=== PATIENT | female | born 1985 | race African-American/Black ===

== ENCOUNTER 2024-01-19 19:13 | Emergency (ER) | payer OTHER ==
[~2024-01-19] VITALS: Ht 167.6 cm; Wt 91.0 kg
[2024-01-19 19:21] VITALS: O2SAT 100
[2024-01-19] MEDS ORDERED: CLONIDINE 0.2MG TABLET PO ONE (19:30)
[2024-01-19] MEDS: CLONIDINE 0.1MG TABLET PO NR (20:30)
[2024-01-19 20:56] LABS: BASOPHILS % 0.5 % (0.0-2.0); EOSINOPHILS % 0.5 % (0.0-5.0); HEMATOCRIT. 42.9 % (36.0-48.0); HEMOGLOBIN. 14.8 g/dL (12.0-16.0); LYMPHOCYTES % 24.2 % (20.0-50.0); MEAN CORPUSCULAR HEMOGLOBIN 28.5 pg (28.0-32.0); MEAN CORPUSCULAR HGB CONC 34.5 g/dL (31.0-37.0); MEAN CORPUSCULAR VOLUME 82.7 fL (81.0-99.0); MEAN PLATELET VOLUME 9.1 fl (7.4-10.4); MONOCYTES % 5.7 % (2.0-8.0); NEUTROPHILS % 69.1 % (40.0-76.0); PLATELET 256 x1000/uL (130-400); RED BLOOD CELL COUNT 5.19 mill/uL (4.2-5.4); RED CELL DISTRIBUTION WIDTH 15.4 % (11.6-14.6); WHITE BLOOD COUNT 10.1 x1000/uL (4.5-11.0)
[2024-01-19 21:05] LABS: CHLORIDE 103 mEq/L (98-107); POTASSIUM 3.2 mEq/L (3.5-5.1); SODIUM 136 mEq/L (136-145)
[2024-01-19 21:06] LABS: CALCIUM 9.4 mg/dL (8.7-10.4); CARBON DIOXIDE 25 mEq/L (21-32)
[2024-01-19 21:11] LABS: CREATININE 1.2 mg/dL (0.6-1.0); GLUCOSE 97 mg/dL (70-105); UREA NITROGEN BLOOD 12 mg/dL (9-23)
[2024-01-19 21:13] LABS: ALANINE AMINOTRANSFERASE 17 IU/L (10-49); ALBUMIN 4.7 g/dL (3.2-4.8); ASPARTATE AMINOTRANSFERASE 37 IU/L (<34); BILIRUBIN TOTAL 1.5 mg/dL (0.1-1.0)
[2024-01-19 21:14] LABS: PROTEIN TOTAL 7.8 g/dL (6.0-8.3)
[2024-01-19] MEDS ORDERED: LABETALOL 5MG/ML 4ML INJ IV ONE (21:30)
[2024-01-20 00:27] LABS: TROPONIN I HIGH SENSITIVITY 8 ng/L (3.0-34)
[2024-01-20] MEDS: LABETALOL 5MG/ML 4ML INJ IV NR ×2 (00:40→04:59)
[2024-01-20 01:22] LABS: HCG SCREEN NEGATIVE
[2024-01-20] MEDS ORDERED: LABETALOL 5MG/ML 4ML INJ IV ONE (02:45)
[2024-01-20] MEDS ORDERED: LABETALOL HCL 200MG TABLET PO SCH (02:45)
[2024-01-20] MEDS ORDERED: MAGNESIUM/ALUMINUM HYDROXIDE/SIMETHICONE 30ML UDC PO PRN (07:00)
[2024-01-20] MEDS ORDERED: ACETAMINOPHEN 325MG TABLET PO PRN ×2 (07:00)
[2024-01-20] MEDS ORDERED: ZOLPIDEM TARTRATE 5MG TABLET PO PRN (07:00)
[2024-01-20] MEDS ORDERED: IPRATROPIUM/ALBUTEROL 0.5-3(2.5)MG/3ML NEB NEB PRN (07:00)
[2024-01-20] MEDS ORDERED: GUAIFENESIN 200MG/10ML SUGAR FREE UDC PO PRN (07:00)
[2024-01-20] MEDS ORDERED: ONDANSETRON HCL 4MG/2ML INJ IV PRN (07:00)
[2024-01-20] MEDS ORDERED: DOCUSATE SODIUM 100MG CAPSULE PO PRN (07:00)
[2024-01-20] MEDS ORDERED: NITROGLYCERIN 0.4MG TABLET SL SL PRN (07:45)
[2024-01-20] MEDS: CLONIDINE 0.1MG TABLET PO PRN (07:49)
[2024-01-20] MEDS ORDERED: ENOXAPARIN 40MG/0.4ML SYR SUBCUT SCH (09:00)
[2024-01-20] MEDS ORDERED: FAMOTIDINE 20MG TABLET PO SCH (09:00)
[2024-01-20] MEDS ORDERED: ASPIRIN 81MG EC TABLET PO SCH (09:00)
[2024-01-20 09:08] VITALS: BP 163/101; PULSE 85; RESP 17; TEMP 98.2
[2024-01-20] MEDS ORDERED: HYDRALAZINE HCL 50MG TABLET PO SCH (14:00)
[2024-01-20] MEDS ORDERED: NITROGLYCERIN OINT 1GM/INCH UDPKT TD SCH (14:00)
== END 2024-01-20 09:10 | disposition left against medical advice (07) ==
LOC: ER 19:32
DX: I16.9 Hypertensive crisis, unspecified (principal); F41.9 Anxiety disorder, unspecified; I10 Essential (primary) hypertension; R51.9 Headache, unspecified; M54.30 Sciatica, unspecified side; Z88.8 Allergy status to other drugs, medicaments and biological substances
CPT/HCPCS: 80053; 82962; 84703; 85025; 84484; 36415; 71045; 70450; 93005; 99291; 99292; 93970; 96374; 96376; J3490 ×2; Z7610